=== PATIENT | male | born 1955 | race African-American/Black ===

== ENCOUNTER → 2019-11-16 | Outpatient (CLI) | payer MEDICARE, OTHER ==
--- NOTE | 2019-11-16 15:22 | RADIOLOGY REPORT (SQ) ---
EXAM DESCRIPTION: CERV SP 4 OR 5 VIEWS COMPLETED DATE/TIME: 11/16/2019 11:39 am REASON FOR STUDY: G60.9 HEREDITARY AND IDIOPATHIC NEUROPATHY, UNSPECIFIED M25.511 PAIN IN RIG G60.9 HEREDITARY AND IDIOPATHIC NEUROPATHY, UNSPECIFIED M25.511 PAIN IN RIGHT SHOULDER COMPARISON: None. NUMBER OF VIEWS: Five views. TECHNIQUE: AP, lateral, obliques and odontoid radiographic images acquired of the cervical spine. LIMITATIONS: None. FINDINGS: MINERALIZATION: Normal. ALIGNMENT: Anatomic. VERTEBRAE: Vertebral bodies of normal height. DISCS: Is slight narrowing of the C5-6 disc space with small marginal osteophytes. There is slight n arrowing at C6-7 with small marginal osteophytes. FORAMINA: No osteophytes or foraminal narrowing. LATERAL AND POSTERIOR ELEMENTS: Facets, lateral masses and spinous processes without significant find ings. HARDWARE: None in the spine. SOFT TISSUES: No masses or calcifications. Lung apices clear. OTHER: No other significant finding. IMPRESSION: Mild degenerative disc disease and spondylosis. TECHNICAL DOCUMENTATION: JOB ID: [id number] 2010 [employer]- All Rights Reserved Reading location - IP/workstation name: [email or web address]
--- NOTE | 2019-11-16 15:28 | RADIOLOGY REPORT (SQ) ---
EXAM DESCRIPTION: SHOULDER RIGHT 2 OR MORE VIEWS COMPLETED DATE/TIME: 11/16/2019 11:39 am REASON FOR STUDY: G60.9 HEREDITARY AND IDIOPATHIC NEUROPATHY, UNSPECIFIED M25.511 PAIN IN RIG G60.9 HEREDITARY AND IDIOPATHIC NEUROPATHY, UNSPECIFIED M25.511 PAIN IN RIGHT SHOULDER COMPARISON: None. NUMBER OF VIEWS: Three views. TECHNIQUE: Internal rotation, external rotation, and Y view images acquired of the right shoulder. LIMITATIONS: None. FINDINGS: MINERALIZATION: Normal. BONES: No acute fracture. No worrisome bone lesions. JOINTS: No dislocation. VISUALIZED LUNGS AND RIBS: No pneumothorax. No rib fracture. SOFT TISSUES: No radiopaque foreign body. OTHER: No other significant finding. IMPRESSION: NEGATIVE STUDY OF THE RIGHT SHOULDER. NO RADIOGRAPHIC EVIDENCE OF ACUTE INJURY. TECHNICAL DOCUMENTATION: JOB ID: [id number] 2010 [employer]- All Rights Reserved Reading location - IP/workstation name: [email or web address]
== END ==
LOC: RAD 10:39
PROVIDERS: ATTEND Nurse Practitioner Family
DX: G60.9 Hereditary and idiopathic neuropathy, unspecified (principal); M25.511 Pain in right shoulder; M50.323 Other cervical disc degeneration at C6-C7 level; M47.812 Spondylosis without myelopathy or radiculopathy, cervical region
CPT/HCPCS: 72050